=== PATIENT | male | born 1965 | race Caucasian/White ===

== ENCOUNTER 2018-03-10 16:37 | Outpatient (CLI) | payer OTHER | END 2018-03-10 16:38 | disposition home or self-care (01) | LOC: BICRAD 16:37 | PROVIDERS: ATTEND Internal Medicine | DX: J18.1 Lobar pneumonia, unspecified organism (principal); R91.8 Other nonspecific abnormal finding of lung field | CPT/HCPCS: 71046 ==

== ENCOUNTER 2021-12-19 09:12 | Outpatient (CLI) | payer OTHER | END 2021-12-19 09:13 | disposition home or self-care (01) | LOC: BICRAD 09:12 | PROVIDERS: ATTEND Registered Nurse Community Health | DX: M79.89 Other specified soft tissue disorders (principal) ==